=== PATIENT | female | born 1960 | race Caucasian/White ===

== ENCOUNTER 2017-11-13 14:21 | Emergency (ER) | payer MEDICARE, OTHER ==
[2017-11-13 16:33] LABS: ADD MAN DIFF? NO
[2017-11-13 16:35] LABS: BASOPHIL # 0.1 10^3/ul (0.0-0.1); BASOPHILS % 0.9 % (0.0-2.0); EOSINOPHILS # 0.4 10^3/ul (0.0-0.5); EOSINOPHILS % 5.6 % (0.0-7.0); HEMATOCRIT 44.7 % (37.0-47.0); HEMOGLOBIN 14.8 g/dl (12.0-16.0); LYMPHOCYTES # 2.6 10^3/ul (0.8-2.9); MEAN CORPUSCULAR HEMOGLOBIN 30.2 pg (29.0-33.0); MEAN CORPUSCULAR HGB CONC 33.1 g/dl (32.0-37.0); MEAN CORPUSCULAR VOLUME 91.2 fl (82.0-101.0); MEAN PLATELET VOLUME 11.4 fl (7.4-10.4); MONOCYTE # 0.7 10^3/ul (0.3-0.9); NEUTROPHIL # 2.9 10^3/ul (1.6-7.5); NEUTROPHILS % 43.2 % (39.0-77.0); PLATELET COUNT 206 10^3/UL (140-415); RED CELL DISTRIBUTION WIDTH 13.4 % (11.5-14.5)
[2017-11-13 16:35] LABS: WHITE BLOOD COUNT 6.8 10^3/ul (4.8-10.8)
[2017-11-13] MEDS: ASPIRIN 81 MG TAB PO (16:40)
[2017-11-13 16:51] LABS: ALANINE AMINOTRANSFERASE 62 IU/L (13-69); ALBUMIN 4.4 g/dl (3.3-4.9); ALBUMIN/GLOBULIN RATIO 1.33; ALKALINE PHOSPHATASE 111 IU/L (42-121); ANION GAP 18 (8-16); ASPARTATE AMINO TRANSFERASE 46 IU/L (15-46); BILIRUBIN,INDIRECT 0.1 mg/dl (0-1.1); BILIRUBIN,TOTAL 0.1 mg/dl (0.2-1.3); BLOOD UREA NITROGEN 17 mg/dl (7-20); CALCIUM 9.3 mg/dl (8.4-10.2); CARBON DIOXIDE 26 mmol/L (21-31); CHLORIDE 106 mmol/L (97-110); GLUCOSE 84 mg/dl (70-220); LIPASE 99 U/L (23-300); POTASSIUM 3.8 mmol/L (3.5-5.1); SODIUM 146 mmol/L (135-144); TOTAL PROTEIN 7.7 g/dl (6.1-8.1)
[2017-11-13 17:03] LABS: B-TYPE NATRIURETIC PEPTIDE 98 PG/ML (0-125); TROPONIN-I 0.015 ng/ml (0.00-0.12)
== END 2017-11-13 19:05 | disposition home or self-care (01) ==
LOC: E/R 14:21
DX: R60.0 Localized edema (principal); I25.10 Atherosclerotic heart disease of native coronary artery without angina pectoris; I10 Essential (primary) hypertension; E66.9 Obesity, unspecified; Z68.42 Body mass index [BMI] 45.0-49.9, adult; Z98.61 Coronary angioplasty status; Z79.82 Long term (current) use of aspirin
CPT/HCPCS: 36415; 71045; 80053; 83690; 83880; 84484; 85025; 93005; 99285-25

== ENCOUNTER → 2018-05-11 | Outpatient (CLI) | payer MEDICARE, OTHER ==
[2018-05-11 10:43] LABS: ANION GAP 10 (8-16); BLOOD UREA NITROGEN 9 mg/dl (7-20); CARBON DIOXIDE 29 mmol/L (21-31); CHLORIDE 109 mmol/L (97-110); GLUCOSE 102 mg/dl (70-220); POTASSIUM 4.6 mmol/L (3.5-5.1); SODIUM 143 mmol/L (135-144)
== END | disposition home or self-care (01) ==
LOC: LAB 09:43
DX: R06.02 Shortness of breath (principal)
CPT/HCPCS: 80048

== ENCOUNTER 2018-09-30 20:04 | Emergency (ER) | payer SELFPAY, OTHER, MEDICARE | END 2018-09-30 23:12 | disposition left against medical advice (07) | LOC: E/R 20:04 | DX: Z53.21 Procedure and treatment not carried out due to patient leaving prior to being seen by health care provider (principal) | CPT/HCPCS: 93005 ==

== ENCOUNTER 2018-10-04 12:59 | Inpatient (IN) | payer OTHER, MEDICARE ==
[2018-10-04 13:34] LABS: ADD MAN DIFF? NO
[2018-10-04] MEDS: SOD CHLORIDE 0.9% 500 ML IV (13:37)
[2018-10-04 13:38] LABS: WHITE BLOOD COUNT 9.7 10^3/ul (4.8-10.8)
[2018-10-04 13:38] LABS: BASOPHIL # 0.1 10^3/ul (0.0-0.1); BASOPHILS % 0.5 % (0.0-2.0); EOSINOPHILS # 0.1 10^3/ul (0.0-0.5); EOSINOPHILS % 1.1 % (0.0-7.0); HEMATOCRIT 42.6 % (37.0-47.0); HEMOGLOBIN 13.6 g/dl (12.0-16.0); LYMPHOCYTES # 3.9 10^3/ul (0.8-2.9); LYMPHOCYTES % 40.1 % (15.0-51.0); MEAN CORPUSCULAR HEMOGLOBIN 29.4 pg (29.0-33.0); MEAN CORPUSCULAR HGB CONC 31.9 g/dl (32.0-37.0); MEAN CORPUSCULAR VOLUME 92.2 fl (82.0-101.0); MEAN PLATELET VOLUME 11.1 fl (7.4-10.4); MONOCYTE # 0.7 10^3/ul (0.3-0.9); MONOCYTES % 6.9 % (0.0-11.0); NEUTROPHIL # 4.9 10^3/ul (1.6-7.5); NEUTROPHILS % 50.9 % (39.0-77.0); PLATELET COUNT 280 10^3/UL (140-415); RED BLOOD COUNT 4.62 10^6/ul (4.20-5.40); RED CELL DISTRIBUTION WIDTH 13.9 % (11.5-14.5)
[2018-10-04 13:54] LABS: INR 0.99; PROTIME 13.2 Sec (11.9-14.9)
[2018-10-04 13:55] LABS: PARTIAL THROMBOPLASTIN TIME 28.5 Sec (23.0-35.0)
[2018-10-04 14:03] LABS: ANION GAP 10 (5-13); BLOOD UREA NITROGEN 14 mg/dl (7-20); CALCIUM 9.2 mg/dl (8.4-10.2); CARBON DIOXIDE 26 mmol/L (21-31); CHLORIDE 106 mmol/L (97-110); CREATININE 0.65 mg/dl (0.44-1.00); D-DIMER 306.73 ng/ml (<460); Estimated GFR > 60 mL/min (>60); GLUCOSE 156 mg/dl (70-220); POTASSIUM 3.4 mmol/L (3.5-5.1); SODIUM 142 mmol/L (135-144)
[2018-10-04] MEDS: ALBUTEROL 0.083% (NEB) 2.5 MG/3 ML AMP INH (14:05)
[2018-10-04 14:15] LABS: B-TYPE NATRIURETIC PEPTIDE 212 PG/ML (0-125); TROPONIN-I < 0.012 ng/ml (0.000-0.120)
[2018-10-04] MEDS: IOHEXOL 100 ML (15:33)
[2018-10-04] MEDS: SOD CHLORIDE 0.9% 100 ML ×2 (15:33→18:48)
[2018-10-04] MEDS: HYDROmorphONE 1 MG/ML SYG IV (17:39)
[2018-10-04] MEDS: DIPHENHYDRAMINE 50 MG INJ IV (17:39)
[2018-10-04] MEDS: METOCLOPRAMIDE 10 MG INJ IV (17:39)
[2018-10-04] MEDS: IODIXANOL LOCM 100 ML BTL (18:48)
[2018-10-04] MEDS ORDERED: ONDANSETRON 4 MG INJ IV ×2 (19:00→22:00)
[2018-10-04] MEDS ORDERED: ZOLPIDEM 5 MG TAB PO (22:00)
[2018-10-04] MEDS ORDERED: NACL 0.9% 3 ML SYG IV (22:00)
[2018-10-04] MEDS: ACETAMINOPHEN 325 MG TAB PO (22:46)
[2018-10-05] MEDS: APIXABAN 5 MG TABLET PO ×2 (09:11→20:02)
[2018-10-05] MEDS: LOSARTAN 50 MG TAB PO (09:11)
[2018-10-05] MEDS: predniSONE 10 MG TAB PO (09:12)
[2018-10-05] MEDS: METOPROLOL 50 MG TAB PO ×2 (09:12→20:02)
[2018-10-05] MEDS: ACETAMINOPHEN 325 MG TAB PO (13:13)
[2018-10-05] MEDS: traMADol 50 MG TAB PO (16:04)
[2018-10-06] MEDS: DIPHENHYDRAMINE 50 MG INJ IV (06:57)
[2018-10-06] MEDS: METHYLPREDNISOLONE 125 MG INJ IV (06:57)
[2018-10-06] MEDS: predniSONE 10 MG TAB PO (10:26)
[2018-10-06] MEDS: LOSARTAN 50 MG TAB PO (10:26)
[2018-10-06] MEDS: METOPROLOL 50 MG TAB PO (10:27)
[2018-10-06] MEDS: APIXABAN 5 MG TABLET PO (10:27)
== END 2018-10-06 20:00 | disposition home or self-care (01) | DRG 103 ==
LOC: E/R 12:59 → 6WM 18:51
DX: G43.109 Migraine with aura, not intractable, without status migrainosus (principal); Z86.718 Personal history of other venous thrombosis and embolism; Z86.711 Personal history of pulmonary embolism; Z79.02 Long term (current) use of antithrombotics/antiplatelets; R47.1 Dysarthria and anarthria; M06.9 Rheumatoid arthritis, unspecified; I10 Essential (primary) hypertension; Z79.52 Long term (current) use of systemic steroids
CPT/HCPCS: 36415; 70450; 70496; 70498; 70551; 71275; 80048; 83036; 83880; 84484; 85025; 85378; 85610; 85730; 87081; 93005; 93970; 94664; 95819; 96374; 96375; 99285-25

== ENCOUNTER 2018-12-28 08:50 | Emergency (ER) | payer OTHER, MEDICAID, MEDICARE ==
[2018-12-28] MEDS: KETOROLAC 30 MG INJ IM (09:39)
== END 2018-12-28 11:42 | disposition home or self-care (01) ==
LOC: FTE 08:50
DX: M19.022 Primary osteoarthritis, left elbow (principal); I10 Essential (primary) hypertension; Z79.01 Long term (current) use of anticoagulants
CPT/HCPCS: 73080; 73080-LT; 73090; 96372; 99284-25

== ENCOUNTER → 2019-02-01 | Outpatient (CLI) | payer MEDICARE | END | disposition home or self-care (01) | LOC: NUC 09:54 | DX: M35.8 Other specified systemic involvement of connective tissue (principal); E04.2 Nontoxic multinodular goiter | CPT/HCPCS: 78014; A9516 ==

== ENCOUNTER 2019-02-25 20:18 | Observation (INO) | payer OTHER, MEDICARE ==
[2019-02-25 21:40] LABS: ADD MAN DIFF? NO
[2019-02-25] MEDS: ONDANSETRON 4 MG INJ IV (21:44)
[2019-02-25] MEDS: SOD CHLORIDE 0.9% 500 ML IV (21:44)
[2019-02-25] MEDS: morphine 4 MG/ML VIAL IV (21:45)
[2019-02-25 21:47] LABS: BASOPHIL # 0.1 10^3/ul (0.0-0.1); BASOPHILS % 0.4 % (0.0-2.0); EOSINOPHILS # 0.3 10^3/ul (0.0-0.5); EOSINOPHILS % 2.7 % (0.0-7.0); HEMATOCRIT 37.3 % (37.0-47.0); HEMOGLOBIN 12.6 g/dl (12.0-16.0); LYMPHOCYTES # 4.4 10^3/ul (0.8-2.9); LYMPHOCYTES % 39.3 % (15.0-51.0); MEAN CORPUSCULAR HEMOGLOBIN 28.8 pg (29.0-33.0); MEAN CORPUSCULAR HGB CONC 33.8 g/dl (32.0-37.0); MEAN CORPUSCULAR VOLUME 85.2 fl (82.0-101.0); MEAN PLATELET VOLUME 11.2 fl (7.4-10.4); MONOCYTE # 0.8 10^3/ul (0.3-0.9); MONOCYTES % 7.3 % (0.0-11.0); NEUTROPHIL # 5.7 10^3/ul (1.6-7.5); NEUTROPHILS % 49.9 % (39.0-77.0); PLATELET COUNT 277 10^3/UL (140-415); RED BLOOD COUNT 4.38 10^6/ul (4.20-5.40); RED CELL DISTRIBUTION WIDTH 13.2 % (11.5-14.5)
[2019-02-25 21:47] LABS: WHITE BLOOD COUNT 11.3 10^3/ul (4.8-10.8)
[2019-02-25 22:02] LABS: ANION GAP 7 (5-13); BLOOD UREA NITROGEN 18 mg/dl (7-20); CALCIUM 8.4 mg/dl (8.4-10.2); CARBON DIOXIDE 27 mmol/L (21-31); CHLORIDE 106 mmol/L (97-110); CREATININE 0.78 mg/dl (0.44-1.00); Estimated GFR > 60 mL/min (>60); GLUCOSE 127 mg/dl (70-220); POTASSIUM 3.5 mmol/L (3.5-5.1); SODIUM 140 mmol/L (135-144)
[2019-02-25 22:50] LABS: ERYTHROCYTE SEDIMENTATION RATE 35 mm/Hr (0-30)
[2019-02-25] MEDS ORDERED: ONDANSETRON 4 MG INJ IV (23:30)
[2019-02-26] MEDS ORDERED: LORAZEPAM 0.5 MG TAB PO (01:30)
[2019-02-26] MEDS: morphine 2 MG INJ IV ×3 (06:03→19:56)
[2019-02-26] MEDS ORDERED: NON-FORMULARY/PATIENT OWN MED (Olmesartan Medoxomil (Benicar) 40 MG) XX (09:00)
[2019-02-26] MEDS ORDERED: VALSARTAN 40 MG PO (09:00)
[2019-02-26] MEDS: GABAPENTIN 300 MG CAP PO ×2 (09:00→20:04)
[2019-02-26] MEDS: APIXABAN 5 MG TABLET PO ×2 (09:00→20:04)
[2019-02-26] MEDS: MECLIZINE 25 MG TAB PO ×3 (09:00→20:03)
[2019-02-26] MEDS: predniSONE 10 MG TAB PO (09:00)
[2019-02-26] MEDS: METOPROLOL 50 MG TAB PO ×2 (09:00→20:04)
[2019-02-26] MEDS ORDERED: ENOXAPARIN 30 MG/0.3 ML SYG SC (21:00)
[2019-02-26] MEDS: ENOXAPARIN 80 MG/0.8 ML SYG SC (22:07)
[2019-02-27] MEDS: morphine 2 MG INJ IV ×2 (00:01→06:37)
[2019-02-27] MEDS: MECLIZINE 25 MG TAB PO ×2 (08:09→12:27)
[2019-02-27] MEDS: METOPROLOL 50 MG TAB PO (08:09)
[2019-02-27] MEDS: ENOXAPARIN 80 MG/0.8 ML SYG SC (08:13)
[2019-02-27] MEDS: predniSONE 10 MG TAB PO (08:22)
[2019-02-27] MEDS: GABAPENTIN 300 MG CAP PO (08:22)
[2019-02-27] MEDS: SUMATRIPTAN 25 MG TAB PO (11:15)
== END 2019-02-27 12:42 | disposition home or self-care (01) ==
LOC: TEL 23:30 → E/R 20:18
PROVIDERS: Internal Medicine
DX: R51 Headache (principal); I69.322 Dysarthria following cerebral infarction; I10 Essential (primary) hypertension; R13.10 Dysphagia, unspecified
CPT/HCPCS: 36415; 70450; 70551; 80048; 85025; 85651; 92610; 96374; 96375; 99285-25; G0378